=== PATIENT | female | born 1990 | race Caucasian/White ===

== ENCOUNTER 2025-02-23 06:30 | Inpatient (IN) | payer OTHER, SELFPAY ==
[2025-02-23 06:37] VITALS: BP 130/89; BMI 27.8
[2025-02-23 06:58] LABS: Hematocrit 41.9 % (37.0-47.0); Hemoglobin 14.3 g/dL (12.0-16.0); Mean Corp Hgb Conc. 34.1 g/dL (33.0-37.0); Mean Corpuscular Volume 89.3 fL (81.0-99.0); Nucleated Red Blood Cells % 0 %; Platelet Count 229 10^3/uL (130-400); Red Cell Dist. Width 13.2 % (11.5-14.5)
[2025-02-23] MEDS: PITOCIN 30 UNITS/NSS 500 ML IV (07:18)
[2025-02-23] MEDS: MOTRIN 600 MG PO ×2 (07:50→19:55)
[2025-02-23] MEDS: PRENATAL PLUS PO (08:00)
[2025-02-23] MEDS: COLACE PO (08:00)
[2025-02-23] MEDS: COLACE 100 MG PO (19:47)
[2025-02-24 05:24] LABS: Hematocrit 36.7 % (37.0-47.0); Hemoglobin 12.6 g/dL (12.0-16.0)
[2025-02-24] MEDS: MOTRIN 600 MG PO (05:38)
[2025-02-24] MEDS: PRENATAL PLUS 1 TABLET PO (08:07)
[2025-02-24] MEDS: COLACE 100 MG PO (08:07)
[2025-02-26 13:59] LABS: Syphilis/T. pallidum Ab Reflex Negative (Negative)
== END 2025-02-24 13:27 | disposition home or self-care (01) | DRG 807 ==
LOC: LDRP 06:30
PROVIDERS: Obstetrics & Gynecology; ADMITTING PHYSICIAN Student in an Organized Health Care Education/Training Program
PROC: 10907ZC Drainage of Amniotic Fluid, Therapeutic from Products of Conception, Via Natural or Artificial Opening (ICD-10-PCS; 2025-02-23)
PROC: 10E0XZZ Delivery of Products of Conception, External Approach (ICD-10-PCS; 2025-02-23)
PROC: 0KQM0ZZ Repair Perineum Muscle, Open Approach (ICD-10-PCS; 2025-02-23)
DX: O43.123 Velamentous insertion of umbilical cord, third trimester (principal); Z37.0 Single live birth; Z3A.39 39 weeks gestation of pregnancy; O69.81X0 Labor and delivery complicated by cord around neck, without compression, not applicable or unspecified; O70.1 Second degree perineal laceration during delivery
CPT/HCPCS: 36415; 85014; 85018; 85025; 86780; 86850; 86900; 86901; 88307